=== PATIENT | female | born 1955 | race Caucasian/White ===

== ENCOUNTER 2020-12-11 16:00 | Outpatient (RCR) | payer MEDICARE, MEDICAID, SELFPAY | END 2021-01-22 10:44 | disposition home or self-care (01) | LOC: HO.PTCHIC 16:00 | PROVIDERS: PCP Pediatrics; Visit Provider Orthopaedic Surgery | DX: Z98.890 Other specified postprocedural states (principal) | CPT/HCPCS: 97110; 97140; 97162 ==

== ENCOUNTER 2022-10-21 09:41 | Outpatient (REF) | payer MEDICARE, MEDICAID, SELFPAY ==
--- NOTE | ~2022-10-21 | XR_ITS ---
EXAMINATION: 1. RADIOGRAPHS CERVICAL SPINE 2. RADIOGRAPHS LUMBAR SPINE 3. RADIOGRAPHS BILATERAL HIPS CLINICAL INFORMATION: Diffuse pain COMPARISON: None TECHNIQUE: 3 views of the cervical spine, 6 views of the lumbar spine and 2 views of each hip were obtained. FINDINGS: Cervical spine: There is mild reversal of normal cervical lordosis. Alignment is otherwise unremarkable. Normal C1/C2 articulation. Cervical vertebral body heights are maintained. There is mild narrowing of the C6/C7 disc space height. A few small osteophytes are present within the mid and lower cervical spine. No prevertebral soft tissue swelling. Visualized lung apices are well aerated. Suspected pacemaker leads are partially visualized. Lumbar spine: 5 nonrib-bearing lumbar vertebral bodies are visualized. Alignment is within normal limits. There is no change in alignment with flexion or extension positioning. Lumbar vertebral body heights are maintained. There is severe narrowing of the L5/S1 disc space height. Tiny osteophytes are scattered throughout the lumbar spine. There are mild degenerative changes of the posterior elements of the lower lumbar spine. Bilateral hips: There is a fracture or dislocation of either hip. There is mild narrowing of both femoral acetabular joint spaces. Pelvic ring is intact. Sacroiliac joints are symmetric. Pelvic calcifications are likely vascular in nature although uterine calcifications are also within the differential. XR/XR lumbar spine 6V w bending IMPRESSION: 1. Mild degenerative changes of the cervical spine centered at C6/C7. 2. Mild to moderate degenerative changes of the lower lumbar spine without compression deformity. 3. Mild degenerative changes of both hips without fracture or dislocation.
--- NOTE | ~2022-10-21 | XR_ITS ---
EXAMINATION: 1. RADIOGRAPHS CERVICAL SPINE 2. RADIOGRAPHS LUMBAR SPINE 3. RADIOGRAPHS BILATERAL HIPS CLINICAL INFORMATION: Diffuse pain COMPARISON: None TECHNIQUE: 3 views of the cervical spine, 6 views of the lumbar spine and 2 views of each hip were obtained. FINDINGS: Cervical spine: There is mild reversal of normal cervical lordosis. Alignment is otherwise unremarkable. Normal C1/C2 articulation. Cervical vertebral body heights are maintained. There is mild narrowing of the C6/C7 disc space height. A few small osteophytes are present within the mid and lower cervical spine. No prevertebral soft tissue swelling. Visualized lung apices are well aerated. Suspected pacemaker leads are partially visualized. Lumbar spine: 5 nonrib-bearing lumbar vertebral bodies are visualized. Alignment is within normal limits. There is no change in alignment with flexion or extension positioning. Lumbar vertebral body heights are maintained. There is severe narrowing of the L5/S1 disc space height. Tiny osteophytes are scattered throughout the lumbar spine. There are mild degenerative changes of the posterior elements of the lower lumbar spine. Bilateral hips: There is a fracture or dislocation of either hip. There is mild narrowing of both femoral acetabular joint spaces. Pelvic ring is intact. Sacroiliac joints are symmetric. Pelvic calcifications are likely vascular in nature although uterine calcifications are also within the differential. XR/XR hip BI w PEL1V IMPRESSION: 1. Mild degenerative changes of the cervical spine centered at C6/C7. 2. Mild to moderate degenerative changes of the lower lumbar spine without compression deformity. 3. Mild degenerative changes of both hips without fracture or dislocation.
--- NOTE | ~2022-10-21 | XR_ITS ---
EXAMINATION: 1. RADIOGRAPHS CERVICAL SPINE 2. RADIOGRAPHS LUMBAR SPINE 3. RADIOGRAPHS BILATERAL HIPS CLINICAL INFORMATION: Diffuse pain COMPARISON: None TECHNIQUE: 3 views of the cervical spine, 6 views of the lumbar spine and 2 views of each hip were obtained. FINDINGS: Cervical spine: There is mild reversal of normal cervical lordosis. Alignment is otherwise unremarkable. Normal C1/C2 articulation. Cervical vertebral body heights are maintained. There is mild narrowing of the C6/C7 disc space height. A few small osteophytes are present within the mid and lower cervical spine. No prevertebral soft tissue swelling. Visualized lung apices are well aerated. Suspected pacemaker leads are partially visualized. Lumbar spine: 5 nonrib-bearing lumbar vertebral bodies are visualized. Alignment is within normal limits. There is no change in alignment with flexion or extension positioning. Lumbar vertebral body heights are maintained. There is severe narrowing of the L5/S1 disc space height. Tiny osteophytes are scattered throughout the lumbar spine. There are mild degenerative changes of the posterior elements of the lower lumbar spine. Bilateral hips: There is a fracture or dislocation of either hip. There is mild narrowing of both femoral acetabular joint spaces. Pelvic ring is intact. Sacroiliac joints are symmetric. Pelvic calcifications are likely vascular in nature although uterine calcifications are also within the differential. XR/XR cervical spine 3V IMPRESSION: 1. Mild degenerative changes of the cervical spine centered at C6/C7. 2. Mild to moderate degenerative changes of the lower lumbar spine without compression deformity. 3. Mild degenerative changes of both hips without fracture or dislocation.
== END 2022-10-21 09:42 | disposition home or self-care (01) ==
LOC: HO.XRAY 09:41
PROVIDERS: PCP Internal Medicine; Visit Provider Nurse Practitioner Family
DX: M47.817 Spondylosis without myelopathy or radiculopathy, lumbosacral region (principal); M47.812 Spondylosis without myelopathy or radiculopathy, cervical region; M62.838 Other muscle spasm; M25.551 Pain in right hip; M25.552 Pain in left hip; M25.562 Pain in left knee; M25.561 Pain in right knee; M25.519 Pain in unspecified shoulder; M54.2 Cervicalgia; M54.9 Dorsalgia, unspecified; G89.29 Other chronic pain
CPT/HCPCS: 72040; 72114; 73521; 99202

== ENCOUNTER 2023-01-13 12:47 | Outpatient (AMB) | payer MEDICARE, MEDICAID, SELFPAY ==
--- NOTE | 2023-01-13 12:54 | MHC.OFFVIS ---
Intake Vital Signs 01/13/23 13:01 Height 5 ft 4 in Weight 154 lb 8 oz BMI 26.5 BP 123/66 Blood Pressure Location Lt brachial Position Sitting Pulse 70 Pulse Source Pulse Oximeter Pulse Oximetry (%) 98 Oxygen Delivery Method Room Air Intake Visit Reasons: Xray result Intake Note: Pain today 08/18 International Controller Required: Yes International Controller Language: Croatian International Controller Name: Aydin # [id number] Accompanied by: Self / Same As Patient Allergies Penicillins Allergy (Unknown, Verified 01/13/23 13:02) Anaphylaxis shellfish Allergy (Unknown, Uncoded 10/21/22 09:56) Anaphylaxis HPI HPI Comments History of Present Illness Details Patient presents today for follow up to review recent cervical, lumbar and hip xray imaging on 10/21/22. Patient reports ongoing right sided back pain that radiates into her mid back and right buttock and into her anterior and lateral hip with intermittent paresthesias in her thigh but not lower leg or foot. Bending forward, walking, standing or lifting worsen her pain. She also continues to present with localized right sacroiliac joint pain and tenderness. Patient reports she has balance issues and unsteadiness when walking or bending in significant pain. Baclofen and lidocaine patches, as well as Tylenol and NSAIDs provide her minimal and temporary pain relief. Denies any abdominal or groin pain, bladder or bowel incontinence or saddle anesthesia. PRIOR: Patient is a pleasant 67-year-old [place]ian in [place]e-speaking patient presents today for initial evaluation of multiple pain generators including knee pain, shoulder, neck and back pain. Patient reports mechanical fall from a ladder on her shoulders in 2004 and meningitis about 18 years ago. Since then she reports she has been in chronic pain and has gone through rehabilitation, OT, physical therapy, massage therapy and daily activity modification. Patient reports despite the pain she continues to stay active and do daily stretching exercises for her back and neck but rarely uses medication. She reports pacemaker insertion about 25 years ago and has been chronically on Xarelto. She reports chronic migraine headaches which are exacerbated by neck pain. Reports intermittent right arm numbness and tingling sensation during significant neck pain. Her back pain is mostly axial and at times will radiate to both of her legs, mostly in her left lateral leg is numbness sensation. Back pain is worse severe as prolonged walking or standing but does not necessarily go away with sitting and prompts her to constantly change positions. She also reports lateral hip pain without significant groin pain. Denies previous spine surgery or injections for any of her pain generators. Patient reports pain affects her daily activities, functions, sleep, and social interactions. Denies any fever, weight loss, abdominal or groin pain, gait imbalance, bladder or bowel incontinence or saddle anesthesia. Location Low back pain with radiation to legs laterally and anteriorly, neck pain Duration Chronic pain, progressively getting worse for past 18 years Characteristics of symptom or complaint Aching, numbness, sore, hurting, shooting, radiating, tingling, throbbing Aggravating or associated factors Prolonged walking, standing, sitting, bending, lifting, cold weather, ice Relieving factors Celecoxib, diclofenac gel, Tylenol, magnesium, changing positions, resting Treatment Daily home exercise program, massage therapy, PT, OT, chiropractic therapy [facility] Medical History Allergic rhinitis Anxiety Complete heart block Dilated cardiomyopathy Dyspnea on exertion History of meningitis Hyperlipidemia Latent tuberculosis Migraine Myocarditis Pacemaker Paroxysmal atrial flutter Preoperative cardiovascular examination Psoriatic arthropathy Ventricular tachycardia Surgical History History of appendectomy History of cholecystectomy History of pacemaker Social History Alcohol intake: current Alcohol intake frequency: holidays/special occasions only Alcohol type: wine Patient Tobacco Use Status: Former Tobacco user Review of Systems Const All systems reviewed & are unremarkable except as noted in HPI and below Physical Exam Vital Signs: Last Vital Signs Pulse 70 01/13/23 13:01 BP 123/66 01/13/23 13:01 Pulse Ox 98 01/13/23 13:01 Oxygen Delivery Method Room Air 01/13/23 13:01 BMI result Body Mass Index 26.5 General: Appears afebrile. Alert and oriented. Mood and affect appropriate. Follows and participates in conversation appropriately. Respiratory effort is unlabored. No cough. Able to transition from sit to stand unassisted. Ambulates with bilaterally normal heel strike and toe off. Neck Neck: Yes normal visual inspection, Yes full ROM, Yes no lymphadenopathy, Yes supple, No anterior neck swelling, No torticollis and Yes no JVD Chest Chest palpation & inspection: normal inspection of the chest and Pacemaker present Back/Spine/Pelvis Cervical Spine: cervical ROM normal and No Cervical spine tenderness Thoracic/Lumbar Spine: thoracic and lumbar spine normal to inspection, No Thoracic/lumbar spine scar(s), Lasegue's sign positive on the right and localized, pain with thoraco-lumbar ROM, paraspinal muscle tenderness, thoracic spinal tenderness (mid thoracic), lumbar spinal tenderness (L4-S1) and straight leg raise positive right at 50 degrees Pelvis: buttock tenderness on the right Sacroiliac joints: bilaterally tender to palpation Results Reviewed Results Reviewed: 1. RADIOGRAPHS CERVICAL SPINE 2. RADIOGRAPHS LUMBAR SPINE 3. RADIOGRAPHS BILATERAL HIPS 10/21/22 CLINICAL INFORMATION: Diffuse pain FINDINGS: Cervical spine: There is mild reversal of normal cervical lordosis. Alignment is otherwise unremarkable. Normal C1/C2 articulation. Cervical vertebral body heights are maintained. There is mild narrowing of the C6/C7 disc space height. A few small osteophytes are present within the mid and lower cervical spine. No prevertebral soft tissue swelling. Visualized lung apices are well aerated. Suspected pacemaker leads are partially visualized. Lumbar spine: 5 nonrib-bearing lumbar vertebral bodies are visualized. Alignment is within normal limits. There is no change in alignment with flexion or extension positioning. Lumbar vertebral body heights are maintained. There is severe narrowing of the L5/S1 disc space height. Tiny osteophytes are scattered throughout the lumbar spine. There are mild degenerative changes of the posterior elements of the lower lumbar spine. Bilateral hips: There is a fracture or dislocation of either hip. There is mild narrowing of both femoral acetabular joint spaces. Pelvic ring is intact. Sacroiliac joints are symmetric. Pelvic calcifications are likely vascular in nature although uterine calcifications are also within the differential. IMPRESSION: 1. Mild degenerative changes of the cervical spine centered at C6/C7. 2. Mild to moderate degenerative changes of the lower lumbar spine without compression deformity. 3. Mild degenerative changes of both hips without fracture or dislocation. Assessment & Plan Assessment & Plan (1) Lumbosacral spondylosis: Code(s): M47.817 - Spondylosis without myelopathy or radiculopathy, lumbosacral region (2) Vertebrogenic low back pain: Code(s): M54.51 - Vertebrogenic low back pain (3) Lumbar radiculopathy: Code(s): M54.16 - Radiculopathy, lumbar region (4) Muscle spasm: Code(s): M62.838 - Other muscle spasm (5) Sacroiliac joint pain: Code(s): M53.3 - Sacrococcygeal disorders, not elsewhere classified Plan Recent spine and hip imaging reviewed with patient. Will proceed with MRI of the lumbar spine to assess for neural integrity and compression. Patient requests open MRI. Pain appears to be a combination of facetogenic, discogenic, radicular back pain and SIJ components. Will consider interventions targeted towards these pain generators based on the MRI results. Her neck symptoms have been minimal at this time. Patient will return to the clinic to discuss results of the MRI findings when it is done and consider interventional therapy as indicated. All questions and concerns have been answered and patient agreed with the plan. Follow up for MRI results and sooner if needed. Orders: Orders MR lumbar spine wo con Today M47.817 - Spondylosis without myelopathy or radiculopathy, lumbosacral region, M54.16 - Radiculopathy, lumbar region Coding Level of Care Code Est Pt Level 4 (08373) Diagnoses Lumbosacral spondylosis M47.817 Vertebrogenic low back pain M54.51 Lumbar radiculopathy M54.16 Muscle spasm M62.838 Sacroiliac joint pain M53.3
[2023-01-13 13:01] VITALS: BP 123/66; PULSE 70; O2SAT 98; BMI 26.5
== END 2023-01-13 13:20 | disposition home or self-care (01) ==
PROVIDERS: PCP Internal Medicine; Visit Provider Nurse Practitioner Family
DX: M47.817 Spondylosis without myelopathy or radiculopathy, lumbosacral region (principal); M54.51 Vertebrogenic low back pain; M54.16 Radiculopathy, lumbar region; M62.838 Other muscle spasm; M53.3 Sacrococcygeal disorders, not elsewhere classified
CPT/HCPCS: 99213

== ENCOUNTER → 2023-01-13 12:47 | Outpatient (BNVA) | payer MEDICARE, MEDICAID, SELFPAY | PROVIDERS: PCP Internal Medicine; Visit Provider Nurse Practitioner Family | DX: M47.817 Spondylosis without myelopathy or radiculopathy, lumbosacral region (principal); M54.16 Radiculopathy, lumbar region; M54.51 Vertebrogenic low back pain; M62.838 Other muscle spasm; M53.3 Sacrococcygeal disorders, not elsewhere classified | CPT/HCPCS: 99212 ==

== ENCOUNTER 2023-02-10 07:02 | Outpatient (REF) | payer MEDICARE, MEDICAID, SELFPAY ==
--- NOTE | ~2023-02-10 | CT_ITS ---
EXAMINATION: CT LUMBAR SPINE WITHOUT CONTRAST CLINICAL INFORMATION: Lumbar radiculopathy. COMPARISON: Lumbar spine radiographs 10/21/2022. TECHNIQUE: [employer] images were obtained. CT imaging of the lumbar spine was performed without contrast. Data was reformatted into multiplanar images at the acquisition workstation. This CT examination was performed using dose optimization techniques as appropriate, variously including the following: *Automated exposure control *Adjustment of mA and/or kV according to patient size (this includes techniques or standardized protocols for targeted exams where dose is matched to indication/reason for exam; i.e. 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 Alignment is normal in the sagittal dimension. Vertebral heights are preserved. No acute fracture. There is slight loss of intervertebral disc height with associated hypertrophic disc osteophyte spurring at multiple levels. Canal patency is not well assessed on this examination due to inherent limitations of CT without intrathecal contrast. A bulging disc in conjunction with facet degenerative change at L3-L4 causing at least mild canal stenosis at this level. Otherwise grossly no canal compromise. No foraminal nerve root compression. Limited visualization of the retroperitoneal anatomy reveals scattered atheromatous calcification involving abdominal aorta and iliac vessels. Psoas and paraspinal muscle groups are symmetric. CT/CT lumbar spine wo IV con IMPRESSION: There is multilevel degenerative spondylosis of the lumbar spine. 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 Canal patency is not well assessed on this examination due to inherent limitations of CT without intrathecal contrast. A bulging disc in conjunction with facet degenerative change at L3-L4 causes at least mild canal stenosis at this level. Otherwise grossly no evidence of canal compromise. No foraminal nerve root compression.
== END 2023-02-10 07:03 | disposition home or self-care (01) ==
LOC: HO.CT 07:02
PROVIDERS: PCP Internal Medicine; Visit Provider Nurse Practitioner Family
DX: M54.16 Radiculopathy, lumbar region (principal); M54.51 Vertebrogenic low back pain; M47.817 Spondylosis without myelopathy or radiculopathy, lumbosacral region
CPT/HCPCS: 72131

== ENCOUNTER 2023-04-13 09:14 | Outpatient (AMB) | payer MEDICARE, MEDICAID, SELFPAY ==
--- NOTE | 2023-04-13 09:15 | A.OFFVIS_ITS ---
Intake Vital Signs 04/13/23 09:23 Height 5 ft 4 in Weight 154 lb BMI 26.4 BP 137/73 Blood Pressure Location Rt brachial Position Sitting Pulse 80 Pulse Source Pulse Oximeter Pulse Oximetry (%) 98 Oxygen Delivery Method Room Air Intake Visit Reasons: Lumbar Spine CT results/lvm Composition Roll Maker And Cutter Required: Yes Composition Roll Maker And Cutter Language: [place] Composition Roll Maker And Cutter Name: [facility] #[id number] Allergies Penicillins Allergy (Unknown, Verified 04/13/23 09:23) Anaphylaxis shellfish Allergy (Unknown, Uncoded 10/21/22 09:56) Anaphylaxis HPI HPI Comments History of Present Illness Details Patient present today for follow up to review recent lumbar spine CT scan results. Patient reports worsening symptoms of low back pain wtih radiation into her right buttocks and posterior and lateral right lower extremity with numbness and tingling, worse in her 3 outer toes on the right. She also has tenderness in sacroiliac joint area on the right and increase pain with provocative testing. Denies any recent cough, cold, infection, fever or other significant changes in medical history since last office visit. PRIOR: Patient presents today for follow up to review recent cervical, lumbar and hip xray imaging on 10/21/22. Patient reports ongoing right sided back pain that radiates into her mid back and right buttock and into her anterior and lateral hip with intermittent paresthesias in her thigh but not lower leg or foot. Bending forward, walking, standing or lifting worsen her pain. She also continues to present with localized right sacroiliac joint pain and tenderness. Patient reports she has balance issues and unsteadiness when walking or bending in significant pain. Baclofen and lidocaine patches, as well as Tylenol and NSAIDs provide her minimal and temporary pain relief. Denies any abdominal or groin pain, bladder or bowel incontinence or saddle anesthesia. PRIOR: Patient is a pleasant 67-year-old [place] in [place]-speaking patient presents today for initial evaluation of multiple pain generators including knee pain, shoulder, neck and back pain. Patient reports mechanical fall from a ladder on her shoulders in 2004 and meningitis about 18 years ago. Since then she reports she has been in chronic pain and has gone through rehabilitation, OT, physical therapy, massage therapy and daily activity modification. Patient reports despite the pain she continues to stay active and do daily stretching exercises for her back and neck but rarely uses medication. She reports pacemaker insertion about 25 years ago and has been chronically on Xarelto. She reports chronic migraine headaches which are exacerbated by neck pain. Reports intermittent right arm numbness and tingling sensation during significant neck pain. Her back pain is mostly axial and at times will radiate to both of her legs, mostly in her left lateral leg is numbness sensation. Back pain is worse severe as prolonged walking or standing but does not necessarily go away with sitting and prompts her to constantly change positions. She also reports lateral hip pain without significant groin pain. Denies previous spine surgery or injections for any of her pain generators. Patient reports pain affects her daily activities, functions, sleep, and social interactions. Denies any fever, weight loss, abdominal or groin pain, gait imbalance, bladder or bowel incontinence or saddle anesthesia. Location Low back pain with radiation to legs laterally and anteriorly, neck pain Duration Chronic pain, progressively getting worse for past 18 years Characteristics of symptom or complaint Aching, numbness, sore, hurting, shooting, radiating, tingling, throbbing Aggravating or associated factors Prolonged walking, standing, sitting, bending, lifting, cold weather, ice Relieving factors Celecoxib, diclofenac gel, Tylenol, magnesium, changing positions, resting Treatment Daily home exercise program, massage therapy, PT, OT, chiropractic therapy [facility] Medical History Complete heart block Pacemaker Allergic rhinitis Psoriatic arthropathy History of meningitis Migraine Hyperlipidemia Anxiety Latent tuberculosis Preoperative cardiovascular examination Paroxysmal atrial flutter Dyspnea on exertion Myocarditis Ventricular tachycardia Dilated cardiomyopathy Surgical History History of pacemaker History of cholecystectomy History of appendectomy Social History Alcohol intake: current Alcohol intake frequency: holidays/special occasions only Alcohol type: wine Patient Tobacco Use Status: Former Tobacco user Review of Systems Const All systems reviewed & are unremarkable except as noted in HPI and below Physical Exam General: Appears afebrile. Alert and oriented. Mood and affect appropriate. Follows and participates in conversation appropriately. Respiratory effort is unlabored. No cough. Able to transition from sit to stand unassisted. Ambulates with bilaterally normal heel strike and toe off. Chest Chest palpation & inspection: normal inspection of the chest and Pacemaker present Back/Spine/Pelvis Other: No midline tenderness to palpation in the thoracic or lumbar spine. Mild paraspinal tenderness to palpation in the lumbar spine, worse on the right. Lumbar extension reproduces mild-moderate pain. Flexion causes moderate pain. SI distraction, Alin?s test, side thrust and compression positive on the right. Cervical Spine: cervical ROM normal and No Cervical spine tenderness Thoracic/Lumbar Spine: thoracic and lumbar spine normal to inspection, No Thoracic/lumbar spine scar(s), Lasegue's sign positive on the right and localized, pain with thoraco-lumbar ROM, paraspinal muscle tenderness, thoracic spinal tenderness (mid thoracic), lumbar spinal tenderness (L4-S1) and straight leg raise positive right at 50 degrees Pelvis: buttock tenderness on the right Sacroiliac joints: on the right tender to palpation and on the left nontender Results Reviewed Results Reviewed: 1. RADIOGRAPHS CERVICAL SPINE 2. RADIOGRAPHS LUMBAR SPINE 3. RADIOGRAPHS BILATERAL HIPS 10/21/22 FINDINGS: Cervical spine: There is mild reversal of normal cervical lordosis. Alignment is otherwise unremarkable. Normal C1/C2 articulation. Cervical vertebral body heights are maintained. There is mild narrowing of the C6/C7 disc space height. A few small osteophytes are present within the mid and lower cervical spine. No prevertebral soft tissue swelling. Visualized lung apices are well aerated. Suspected pacemaker leads are partially visualized. Lumbar spine: 5 nonrib-bearing lumbar vertebral bodies are visualized. Alignment is within normal limits. There is no change in alignment with flexion or extension positioning. Lumbar vertebral body heights are maintained. There is severe narrowing of the L5/S1 disc space height. Tiny osteophytes are scattered throughout the lumbar spine. There are mild degenerative changes of the posterior elements of the lower lumbar spine. Bilateral hips: There is a fracture or dislocation of either hip. There is mild narrowing of both femoral acetabular joint spaces. Pelvic ring is intact. Sacroiliac joints are symmetric. Pelvic calcifications are likely vascular in nature although uterine calcifications are also within the differential. IMPRESSION: 1. Mild degenerative changes of the cervical spine centered at C6/C7. 2. Mild to moderate degenerative changes of the lower lumbar spine without compression deformity. 3. Mild degenerative changes of both hips without fracture or dislocation. CT LUMBAR SPINE WITHOUT CONTRAST 02/10/23 CLINICAL INFORMATION: Lumbar radiculopathy. COMPARISON: Lumbar spine radiographs 10/21/2022. FINDINGS: The L5 and S1 vertebral segments are chronically fused. Alignment is normal in the sagittal dimension. Vertebral heights are preserved. No acute fracture. There is slight loss of intervertebral disc height with associated hypertrophic disc osteophyte spurring at multiple levels. Canal patency is not well assessed on this examination due to inherent limitations of CT without intrathecal contrast. A bulging disc in conjunction with facet degenerative change at L3-L4 causing at least mild canal stenosis at this level. Otherwise grossly no canal compromise. No foraminal nerve root compression. Limited visualization of the retroperitoneal anatomy reveals scattered atheromatous calcification involving abdominal aorta and iliac vessels. Psoas and paraspinal muscle groups are symmetric. IMPRESSION: There is multilevel degenerative spondylosis of the lumbar spine. 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 Canal patency is not well assessed on this examination due to inherent limitations of CT without intrathecal contrast. A bulging disc in conjunction with facet degenerative change at L3-L4 causes at least mild canal stenosis at this level. Otherwise grossly no evidence of canal compromise. No foraminal nerve root compression. Assessment & Plan Assessment & Plan (1) Sacroiliac joint pain: Code(s): M53.3 - Sacrococcygeal disorders, not elsewhere classified (2) Lumbar radiculopathy: Code(s): M54.16 - Radiculopathy, lumbar region (3) Lumbosacral spondylosis: Code(s): M47.817 - Spondylosis without myelopathy or radiculopathy, lumbosacral region Plan Lumbar spine CT scan results were discussed with patient with assistance of Emirati speaking medical liaison via iPad. Discussed treatments for axial low back pain and radicular right sided symptoms, right L5-S1 radiculopathy, including therapeutic and diagnostic injections. Patient is hesitant towards injections or PT course at this time due to significant pain. Script provided for Medrol Armaan and refill for lidocaine patches per patient's request. Patient would like to discuss CT scan findings with her family and notify our office later today on her decision. All quesitons and concerns have been answered and patient agreed with the plan. Follow up as needed. Medications: New methylprednisolone (Medrol (Armaan)) PO PER PKG DIR 21 ea 0RF M54.16 - Radiculopathy, lumbar region Refilled lidocaine 5% 1 patch topical DAILY 30 days 30 ea 1RF pain M47.812 - Spondylosis without myelopathy or radiculopathy, cervical region, M47.817 - Spondylosis without myelopathy or radiculopathy, lumbosacral region Coding Level of Care Code Est Pt Level 4 (53640) Diagnoses Sacroiliac joint pain M53.3 Lumbar radiculopathy M54.16 Lumbosacral spondylosis M47.817
[2023-04-13 09:23] VITALS: BP 137/73; PULSE 80; O2SAT 98; BMI 26.4
== END 2023-04-13 09:33 | disposition home or self-care (01) ==
PROVIDERS: PCP Internal Medicine; Visit Provider Nurse Practitioner Family
DX: M53.3 Sacrococcygeal disorders, not elsewhere classified (principal); M54.16 Radiculopathy, lumbar region; M47.817 Spondylosis without myelopathy or radiculopathy, lumbosacral region
CPT/HCPCS: 99214

== ENCOUNTER → 2023-04-13 09:14 | Outpatient (BNVA) | payer MEDICARE, MEDICAID, SELFPAY | PROVIDERS: PCP Internal Medicine; Visit Provider Nurse Practitioner Family | DX: M53.3 Sacrococcygeal disorders, not elsewhere classified (principal); M54.16 Radiculopathy, lumbar region; M47.817 Spondylosis without myelopathy or radiculopathy, lumbosacral region | CPT/HCPCS: 99212 ==